=== PATIENT | male | born 1970 | race Caucasian/White ===

== ENCOUNTER 2018-12-26 14:52 | Emergency (ER) | payer SELFPAY ==
--- NOTE | 2018-12-26 15:13 | ER Report ---
History and Physical Time Seen By MD: 15:13 HPI/ROS CHIEF COMPLAINT: Right knee pain, bilateral hand pain HISTORY OF PRESENT ILLNESS: 48-year-old male patient presents to the emergency room with complaint of right knee pain. Patient states that he was up on the lateral proximal 6 feet off the ground when he fell. He states he landed on both feet. He states that his right knee flexed medially and he felt a pop. Patient states he has significant amount of pain to the medial aspect of the right knee. Patient states that he feels laxity with movement. Patient denies any numbness or tingling. Patient states he is not having any pain to his feet, but states he does have some pain to both hands. He states he is not taking any medication for this. He states this occurred approximately 30 minutes prior to arrival. REVIEW OF SYSTEMS: Respiratory: No cough, no dyspnea. Cardiovascular: No chest pain, no palpitations. Gastrointestinal: No vomiting, no abdominal pain. Musculoskeletal: As noted above Allergies: Coded Allergies: ibuprofen (Verified Allergy, Severe, HIVES, 12/26/18) Home Meds Active Scripts Hydrocodone Bit/Acetaminophen (HYDROCODON-ACETAMINOPHEN 5-325) 1 Each Tablet, 1 EACH PO Q4-6H PRN for PAIN, #12 TAB Prov:CHARLES PEÑA 12/26/18 Past Medical/Surgical History Patient has a past medical history of arthritis. Patient has no pertinent surgical history. Reviewed Nurses Notes: Yes Constitutional Vital Sign - Last 24 Hours 12/26/18 12/26/18 12/26/18 12/26/18 15:15 15:20 15:22 15:30 Temp 98.3 Pulse 76 79 Resp 16 B/P (MAP) 126/89 (101) 126/89 136/99 (111) Pulse Ox 94 93 O2 Delivery Room Air 12/26/18 12/26/18 12/26/18 12/26/18 15:52 16:00 16:22 16:27 Pulse 72 68 59 B/P (MAP) 124/88 (100) Pulse Ox 93 97 95 12/26/18 12/26/18 16:30 16:57 Pulse 61 B/P (MAP) 122/85 (97) Pulse Ox 94 Physical Exam General Appearance: The patient is alert, has no immediate need for airway protection and no current signs of toxicity. Respiratory: Chest is non tender, lungs are clear to auscultation. Cardiac: regular rate and rhythm Gastrointestinal: Abdomen is soft and non tender, no masses, bowel sounds normal. Musculoskeletal: Neck: Neck is supple and non tender. Extremities have full range of motion and are non tender. Patient had no tenderness to palpation of the feet bilaterally. Patient did have some tenderness at the base of his hands. There is no bruising or swelling noted. Patient has significant amount tenderness to the medial aspect of the right knee. There is no laxity noted. Patient did have some swelling. Skin: No rashes or lesions. DIFFERENTIAL DIAGNOSIS: After history and physical exam differential diagnosis was considered for fracture, contusion, sprain. Medical Decision Making EKG/Imaging Imaging Examination: 3 views of both hands. Comparison: None. History: fall with pain Findings: 3 views right hand: No fracture. Alignment is within normal limits. Minor joint space loss diffusely throughout the interphalangeal and metacarpophalangeal joints. No soft tissue abnormality. 3 views left hand: No fracture. Alignment is within normal limits. Minor joint space loss diffusely throughout the interphalangeal and metacarpophalangeal joints. No soft tissue abnormality. IMPRESSION: 1. No left or right hand fracture or malalignment. 2. Minor degenerative change. Report Dictated By: Omer Velez MD at 12/26/2018 4:45 PM Report E-Signed By: Omer Velez MD at 12/26/2018 4:49 PM Examination: KNEE 4 VIEW RIGHT Comparison: None. History: fall with pain Findings: No fracture. Alignment is within normal limits. Minor degenerative change along the medial femorotibial compartment. No joint effusion. No soft tissue abnormality. IMPRESSION: 1. No right knee fracture or malalignment. 2. Medial femorotibial compartment minor degenerative change. Report Dictated By: Omer Velez MD at 12/26/2018 4:50 PM Report E-Signed By: Omer Velez MD at 12/26/2018 4:51 PM ED Course/Re-evaluation ED Course Patient is admitted and examined, history and physical were obtained. Differential diagnoses were considered. On reexamination patient had tenderness to the medial aspect of the right knee. There was swelling noted to the knee. Patient also has some tenderness to the base of the hand on the palmar side. There is no bruising noted. X-rays are done of bilateral hands as well as the right knee. There are no acute fractures noted. I discussed the findings with the patient. Patient was placed in a knee immobilizer. He will be given a limited supply of pain medication. He is to follow-up with orthopedics. I do have concerns the patient does have a medial collateral ligament injury. I discussed this with the patient who verbalized understanding and agreement with plan. Decision to Disposition Date: Dec 26, 2018 Decision to Disposition Time: 17:06 Depart Departure Latest Vital Signs Vital Signs Date Time Temp Pulse Resp B/P (MAP) Pulse Ox O2 Delivery O2 Flow Rate FiO2 12/26/18 16:57 61 94 12/26/18 16:30 122/85 (97) 12/26/18 15:20 98.3 16 Room Air Impression: Primary Impression: Knee MCL sprain Condition: Improved Disposition: HOME OR SELF-CARE Referrals: SHEEBA WARE MD New Scripts Hydrocodone Bit/Acetaminophen (HYDROCODON-ACETAMINOPHEN 5-325) 1 Each Tablet 1 EACH PO Q4-6H PRN for PAIN, #12 TAB Prov: CHARLES PEÑA 12/26/18 Patient Instructions: Knee Sprain (ED) Additional Instructions: Wear the knee immobilizer when you are up being active. Return to the ER if condition worsens. Follow up with orthopedics in the next week. Take the pain medication as prescribed. Don't take more than 4000mg of Tylenol (acetaminophen) in a 24 hour period. Problem Qualifiers Primary Impression: Knee MCL sprain Encounter type: initial encounter Laterality: right Qualified Codes: S83.411A - Sprain of medial collateral ligament of right knee, initial encounter CHARLES PEÑA Dec 26, 2018 15:13
[2018-12-26] MEDS ORDERED: KETOROLAC 30 MG/ML VIAL IM ONE (15:20)
[2018-12-26] MEDS ORDERED: ACETAMINOPHEN 500 MG TAB PO ONE (15:25)
[2018-12-26 16:30] VITALS: BP 122/85
--- NOTE | 2018-12-26 16:53 | RADIOLOGY IMAGING REPORT ---
FACILITY: [facility] [place] PATIENT NAME: Evens Gracia : 1970 MR: [id number] V: [id number] EXAM DATE: ORDERING PHYSICIAN: CHARLES PEÑA TECHNOLOGIST: Location: [facility] [place] Patient: Evens Garcia : 1970 Visit/Account:[id number] Date of Sevice: 12/26/2018 Examination: 3 views of both hands. Comparison: None. History: fall with pain Findings: 3 views right hand: No fracture. Alignment is within normal limits. Minor joint space loss diffusely throughout the interphalangeal and metacarpophalangeal joints. No soft tissue abnormality. 3 views left hand: No fracture. Alignment is within normal limits. Minor joint space loss diffusely t hroughout the interphalangeal and metacarpophalangeal joints. No soft tissue abnormality. IMPRESSION: 1. No left or right hand fracture or malalignment. 2. Minor degenerative change. Report Dictated By: Omer Velez MD at 12/26/2018 4:45 PM Report E-Signed By: Omer Velez MD at 12/26/2018 4:49 PM WSN:[id number]
--- NOTE | 2018-12-26 16:55 | RADIOLOGY IMAGING REPORT ---
FACILITY: [facility] - [place] PATIENT NAME: Evens Garcia : 1970 MR: [id number] V: [id number] EXAM DATE: ORDERING PHYSICIAN: CHARLES PEÑA TECHNOLOGIST: Location: [facility] Patient: Evens Garcia : 1970 Visit/Account:[id number] Date of Sevice: 12/26/2018 Examination: KNEE 4 VIEW RIGHT Comparison: None. History: fall with pain Findings: No fracture. Alignment is within normal limits. Minor degenerative change along the medial femorotibial compartment. No joint effusion. No soft tissue abnormality. IMPRESSION: 1. No right knee fracture or malalignment. 2. Medial femorotibial compartment minor degenerative change. Report Dictated By: Omer Velez MD at 12/26/2018 4:50 PM Report E-Signed By: Omer Velez MD at 12/26/2018 4:51 PM WSN:[id number]
[2018-12-26] MEDS ORDERED: HYDR-385 PO (17:08)
[2018-12-26] MEDS ORDERED: ACET/HYDROC 5/325MG TH ER ONLY 2 TAB/BOTTLE PO ONE (17:10)
== END 2018-12-26 17:20 | disposition home or self-care (01) ==
LOC: ER 15:30
DX: S83.411A Sprain of medial collateral ligament of right knee, initial encounter (principal)
CPT/HCPCS: 73130; 73564; 99284; L1830